=== PATIENT | female | born 1975 | race Two or more races ===

== ENCOUNTER 2017-11-25 12:41 | Inpatient (IN) | payer OTHER ==
--- NOTE | 2017-11-25 14:56 | PDOC ---
Attending Attestation - HPI HPI: 11/25/17 18:44 The patient is a 42 year old female with a significant PMH of 2 c-sections and tubal ligation who presents to the emergency department with abdominal pain, nausea, vomiting, and watery diarrhea that began approximately 4 days ago. The patient reports the abdominal pain and non-bloody, non-bilious vomit started first. The patient states the abdominal pain is localized on the umbilical and RUQ areas that she describes as a 10/10 worsened by eating. The patient notes she took peptobismol with mild alleviation of her symptoms. The abdominal pain and vomiting was then followed by watery diarrhea that she describes as dark black color. The patient denies any flank pain. The patient states she has not eaten since yesterday due to a lack of appetite, The patient denies chest pain, shortness of breath, headache and dizziness. Denies fever, chills, and constipation. Denies dysuria, frequency, urgency and hematuria. Allergies: NKA Past surgical history: , tubal ligation Social history: No reported alcohol, cigarette or drug use. PCP: Dr. Musa Lincoln - Physicial Exam PE: 11/25/17 18:44 GENERAL: Awake, alert, and fully oriented, in no acute distress HEAD: No signs of trauma EYES: PERRLA, EOMI, sclera anicteric, conjunctiva clear ENT: Auricles normal inspection, hearing grossly normal, nares patent, oropharynx clear without exudates. Moist mucosa NECK: Normal ROM, supple, no lymphadenopathy, JVD, or masses LUNGS: Breath sounds equal, clear to auscultation bilaterally. No wheezes, and no crackles HEART: Regular rate and rhythm, normal S1 and S2, no murmurs, rubs or gallops ABDOMEN: (+) Periumbilical tenderness to palpation. (+) RUQ tenderness to palpation. (+) Positive Bradford's Sign. Soft, normoactive bowel sounds. No guarding, no rebound. EXTREMITIES: Normal range of motion, no edema. No clubbing or cyanosis. No cords, erythema, or tenderness BACK: No midline spinal tenderness in cervical/thoracic/lumbar region NEUROLOGICAL: Normal speech, cranial nerves intact, negative pronator drift, 5/ 5 strength in all 4 extremities, normal sensation to light touch in all 4 extremities, normal cerebellar exam, normal gait, normal reflexes and tone SKIN: Warm, Dry, normal turgor, no rashes or lesions noted <Rowena Yoon - Last Filed: 11/25/17 18:44> - Resident Resident Name: Selena West - ED Attending Attestation I have performed the following: I have examined & evaluated the patient, The case was reviewed & discussed with the resident, I agree w/resident's findings & plan, Exceptions are as noted - Medical Decision Making 11/25/17 18:43 42-year-old female presents with epigastric abdominal pain, worse after food. Ultrasound with gallbladder wall thickening and gallstones. Patient continues to be tender in right upper quadrant. Story is consistent with clinical cholecystitis. Patient admitted for surgical consultation and further management. <Makenna Hopkins - Last Filed: 11/27/17 02:16>
--- NOTE | 2017-11-25 15:04 | PDOC ---
History of Present Illness - General Chief Complaint: Pain Stated Complaint: ABD PAIN, VOMITING History Source: Patient Exam Limitations: No Limitations - History of Present Illness Initial Comments: This is a 42 YOF with h/o CSx2 and BTL who p/w non-radiating umbilical abdominal pain worsening for the past four days, as well as NBNB vomiting and dark brown watery diarrhea. The pain has been up to 10/10, feels sharp and " like I'm being torn apart inside", and is intermittent. It worsens when she eats any food. She denies any fever, chills, constipation, dysuria, vaginal discharge, or other symptoms. She denies any alcohol use. Past History - Past Medical History Allergies/Adverse Reactions: Allergies Allergy/AdvReac Type Severity Reaction Status Date / Time No Known Allergies Allergy Verified 11/25/17 12:56 Home Medications: Ambulatory Orders NK [No Known Home Medication] 11/25/17 COPD: No - Suicide/Smoking/Psychosocial Hx Smoking History: Never smoked Have you smoked in the past 12 months: No Information on smoking cessation initiated: No Hx Alcohol Use: No Drug/Substance Use Hx: No Substance Use Type: None Review of Systems - Review of Systems Able to Perform ROS?: Yes Constitutional: Yes: Loss of Appetite. No: Chills, Fever, Malaise, Weakness, Unexplained wgt Loss HEENTM: No: Nose Congestion, Throat Pain Respiratory: No: Cough, Shortness of Breath Cardiac (ROS): No: Chest Pain, Palpitations ABD/GI: Yes: Diarrhea, Nausea, Vomiting, Other (abdominal pain). No: Constipated : No: Burning, Dysuria Musculoskeletal: No: Back Pain, Neck Pain Integumentary: No: Bruising, Rash Neurological: No: Headache, Numbness, Tingling, Weakness, Dizziness Endocrine: No: Unexplained Weight Gain, Unexplained Weight Loss, Change in Weight *Physical Exam - Vital Signs Last Vital Signs Temp Pulse Resp BP Pulse Ox 98.6 F 69 18 118/69 100 11/25/17 12:54 11/25/17 12:54 11/25/17 12:54 11/25/17 12:54 11/25/17 12:54 - Physical Exam General Appearance: Yes: Nourished, Appropriately Dressed, Obese, Other ( uncomfortable appearing adult female in mild distress, answering questions appropriately). No: Apparent Distress HEENT: positive: EOMI, HEMANT, Normal ENT Inspection, Normal Voice, Hearing Grossly Normal. negative: Scleral Icterus (R), Scleral Icterus (L), Nasal Congestion Neck: positive: Trachea midline, Supple. negative: Tender, Rigid Respiratory/Chest: positive: Lungs Clear, Normal Breath Sounds. negative: Respiratory Distress, Crackles, Rhonchi, Stridor, Wheezing Cardiovascular: positive: Regular Rhythm, Regular Rate. negative: Edema, JVD, Murmur Gastrointestinal/Abdominal: positive: Normal Bowel Sounds, Tender (moderate umbilical and mild RUQ ttp with positive Bradford's sign), Soft. negative: Organomegaly, Pulsatile Mass, Guarding Musculoskeletal: positive: Normal Inspection. negative: CVA Tenderness, Decreased Range of Motion, Vertebral Tenderness Extremity: positive: Normal Capillary Refill, Normal Inspection, Normal Range of Motion. negative: Tender, Cyanosis Integumentary: positive: Normal Color, Dry, Warm. negative: Erythema, Rash, Bruising Neurologic: positive: gleason operator II-XII NML intact (grossly), Fully Oriented, Alert, Normal Mood/Affect, Normal Response, Motor Strength 5/5 ED Treatment Course - LABORATORY CBC & Chemistry Diagram: 11/25/17 16:08 11/25/17 16:08 *DC/Admit/Observation/Transfer Diagnosis at time of Disposition: Cholelithiasis Qualifiers: Cholelithiasis location: gallbladder Cholecystitis presence: with cholecystitis Cholecystitis acuity: acute Biliary obstruction: without biliary obstruction Qualified Code(s): K80.00 - Calculus of gallbladder with acute cholecystitis without obstruction Abdominal pain Qualifiers: Abdominal location: right upper quadrant Qualified Code(s): R10.11 - Right upper quadrant pain Vomiting Qualifiers: Vomiting type: unspecified Vomiting Intractability: non-intractable Nausea presence: with nausea Qualified Code(s): R11.2 - Nausea with vomiting, unspecified Diarrhea Qualifiers: Diarrhea type: unspecified type Qualified Code(s): R19.7 - Diarrhea, unspecified - Discharge Dispostion Condition at time of disposition: Guarded Admit: Yes - Referrals Referrals: Musa Lincoln MD [Primary Care Provider] - - Patient Instructions - Post Discharge Activity
[2017-11-25] MEDS ORDERED: ACETAMINOPHEN 1000 MG/100 ML VIAL (NON FORMULARY) IVPB ONE (15:35)
[2017-11-25] MEDS ORDERED: SODIUM CHLORIDE 500 ML IV STA (15:35)
[2017-11-25] MEDS ORDERED: METOCLOPRAMIDE HCL INJECTION 10 MG/2 ML VIAL IVPUSH ONE (15:35)
[2017-11-25 16:13] LABS: URINE APPEARANCE CLEAR; URINE BILIRUBIN NEGATIVE (NEGATIVE); URINE BLOOD NEGATIVE (NEGATIVE); URINE COLOR STRAW; URINE GLUCOSE (UA) NEGATIVE (NEGATIVE); URINE KETONE NEGATIVE (NEGATIVE); URINE LEUK ESTERASE NEGATIVE (NEGATIVE); URINE NITRITE NEGATIVE (NEGATIVE); URINE PROTEIN NEGATIVE (NEGATIVE); URINE UROBILINOGEN NEGATIVE mg/dL (0.2-1.0)
[2017-11-25] MEDS ORDERED: ACETAMINOPHEN INJECTION 100 ML IVPB ONE (16:27)
[2017-11-25] MEDS ORDERED: METOCLOPRAMIDE HCL INJECTION 10 MG/2 ML VIAL ONE (16:27)
[2017-11-25 16:54] LABS: BASO % 0.5 % (0-2.0); EOS % 3.4 % (0-4.5); HEMATOCRIT 38.4 % (32.4-45.2); HEMOGLOBIN 12.9 GM/dL (10.7-15.3); LYMPH % 31.6 % (8-40); MCH 30.6 pg (25.7-33.7); MCHC 33.7 g/dl (32.0-36.0); MEAN CELL VOLUME 90.8 fl (80-96); MEAN PLT VOLUME 8.3 fl (7.5-11.1); MONO % 6.2 % (3.8-10.2); NEUT % 58.3 % (42.8-82.8); PLATELET COUNT 290 K/MM3 (134-434); RBC 4.23 M/mm3 (3.60-5.2); WHITE BLOOD COUNT 5.9 K/mm3 (4.0-10.0)
[2017-11-25 17:16] LABS: INR 1.08 (0.82-1.09); PROTHROMBIN TIME (PATIENT) 12.2 SEC (9.98-11.88)
[2017-11-25 17:20] LABS: ALBUMIN 3.7 g/dl (3.4-5.0); ANION GAP 5 (8-16); BLOOD UREA NITROGEN 7 mg/dL (7-18); CALCIUM 8.3 mg/dL (8.5-10.1); CHLORIDE 108 mmol/L (98-107); CO2 26 mmol/L (21-32); CREATININE 0.7 mg/dL (0.55-1.02); GLUCOSE,RANDOM 78 mg/dL (74-106); POTASSIUM 4.2 mmol/L (3.5-5.1); SGOT/AST 14 U/L (15-37); SODIUM 139 mmol/L (136-145)
[2017-11-25 18:03] LABS: ALK PHOS 81 U/L (45-117); BILIRUBIN,TOTAL 0.2 mg/dL (0.2-1.0); SGPT/ALT 16 U/L (12-78); TOT PROT 7.1 g/dl (6.4-8.2)
[2017-11-26 01:06] VITALS: BMI 37.7
[2017-11-26] MEDS ORDERED: MORPHINE SULFATE 10 MG/1 ML *VIAL IVPUSH PRN (06:09)
[2017-11-26] MEDS ORDERED: ONDANSETRON 4 MG/2 ML VIAL IVPUSH PRN (06:10)
[2017-11-26] MEDS ORDERED: DEXTROSE 5%-0.45% SALINE 1,000 ML IV SCH (06:15)
--- NOTE | 2017-11-26 11:39 | CONSULT ---
Consult Consult Specialty:: Surgery Reason for Consultation:: cholelithiasis - History of Present Illness Chief Complaint: RUQ abdominal pain History of Present Illness: The patient is a 42 year old female with a significant PMH of 2 c-sections and tubal ligation who presents to the emergency department with abdominal pain, nausea, vomiting, and watery diarrhea that began approximately 4 days ago. The patient reports the abdominal pain and non-bloody, non-bilious vomit started first. The patient states the abdominal pain is localized on the umbilical and RUQ areas that she describes as a 10/10 worsened by eating. The patient notes she took peptobismol with mild alleviation of her symptoms. The abdominal pain and vomiting was then followed by watery diarrhea that she describes as dark black color. The patient denies any flank pain. The patient states she has not eaten since yesterday due to a lack of appetite, The patient denies chest pain, shortness of breath, headache and dizziness. Denies fever, chills, and constipation. Denies dysuria, frequency, urgency and hematuria. Currently not in pain. Had clear liquids last night. - History Source History Provided By: Patient Limitations to Obtaining History: No Limitations - Past Medical History ...LMP: 11/22/17 ...: No - Past Surgical History Additional Surgical History: excision, axillary cyst - Alcohol/Substance Use Hx Alcohol Use: No - Smoking History Smoking history: Never smoked Have you smoked in the past 12 months: No - Social History Usual Living Arrangement: With Child Home Medications - Allergies Allergies/Adverse Reactions: Allergies Allergy/AdvReac Type Severity Reaction Status Date / Time No Known Allergies Allergy Verified 11/25/17 12:56 - Home Medications Home Medications: Ambulatory Orders NK [No Known Home Medication] 11/25/17 Review of Systems - Review of Systems Constitutional: reports: No Symptoms Cardiovascular: reports: No Symptoms Respiratory: reports: No Symptoms Gastrointestinal: reports: Abdominal Pain (resolving RUQ pain) Physical Exam Vital Signs: Vital Signs Temperature 98.6 F 11/26/17 08:00 Pulse Rate 62 11/26/17 08:00 Respiratory Rate 18 11/26/17 08:00 Blood Pressure 130/81 11/26/17 08:00 O2 Sat by Pulse Oximetry (%) 100 11/26/17 00:48 Constitutional: Yes: Well Nourished, No Distress Eyes: Yes: Conjunctiva Clear HENT: Yes: Normocephalic Neck: Yes: Supple Cardiovascular: Yes: Regular Rate and Rhythm Respiratory: Yes: CTA Bilaterally Gastrointestinal: Yes: Soft, Abdomen, Obese, Tenderness (minimal to no RUQ tenderness) ...Rectal Exam: Yes: Deferred Extremities: Yes: WNL Edema: No Integumentary: Yes: WNL Neurological: Yes: Alert, Oriented Psychiatric: Yes: WNL Labs: CBC, BMP 11/25/17 16:08 11/25/17 16:08 Laboratory Results - last 24 hr 11/25/17 11/25/17 11/25/17 15:42 16:08 16:08 WBC 5.9 RBC 4.23 Hgb 12.9 Hct 38.4 MCV 90.8 MCH 30.6 MCHC 33.7 RDW 13.0 Plt Count 290 MPV 8.3 Neutrophils % 58.3 Lymphocytes % 31.6 Monocytes % 6.2 Eosinophils % 3.4 Basophils % 0.5 PT with INR 12.20 H INR 1.08 Sodium Potassium Chloride Carbon Dioxide Anion Gap BUN Creatinine Creat Clearance w eGFR Random Glucose Calcium Total Bilirubin AST ALT Alkaline Phosphatase Creatine Kinase Troponin I Total Protein Albumin Lipase Urine Color Straw Urine Appearance Clear Urine pH 5.0 Ur Specific [place] 1.008 Urine Protein Negative Urine Glucose (UA) Negative Urine Ketones Negative Urine Blood Negative Urine Nitrite Negative Urine Bilirubin Negative Urine Urobilinogen Negative Ur Leukocyte Esterase Negative Blood Type Antibody Screen 11/25/17 11/25/17 11/25/17 16:08 16:08 16:08 WBC RBC Hgb Hct MCV MCH MCHC RDW Plt Count MPV Neutrophils % Lymphocytes % Monocytes % Eosinophils % Basophils % PT with INR INR Sodium 139 Potassium 4.2 Chloride 108 H Carbon Dioxide 26 Anion Gap 5 L BUN 7 Creatinine 0.7 Creat Clearance w eGFR > 60 Random Glucose 78 Calcium 8.3 L Total Bilirubin 0.2 AST 14 L ALT 16 Alkaline Phosphatase 81 Creatine Kinase 39 Troponin I < 0.02 Total Protein 7.1 Albumin 3.7 Lipase 153 Urine Color Urine Appearance Urine pH Ur Specific [place] Urine Protein Urine Glucose (UA) Urine Ketones Urine Blood Urine Nitrite Urine Bilirubin Urine Urobilinogen Ur Leukocyte Esterase Blood Type O POSITIVE Antibody Screen Negative Imaging - Results Ultrasound: Report Reviewed, Image Reviewed (contracted GB with large stone, possibly impacted) Problem List - Problems (1) Cholelithiasis Assessment/Plan: cholellithiasis with mild cholecystitis from impacted large gallstone Advised cholecystectomy on this hospital stay but patient desires to go home as pain has significantly subsided Will resume diet -low fat and possible discharge if pain does not recur If patient's symptoms recur, will likely need cholecystectomy before discharge. Code(s): K80.20 - CALCULUS OF GALLBLADDER W/O CHOLECYSTITIS W/O OBSTRUCTION Qualifiers: Cholelithiasis location: gallbladder Cholecystitis presence: with cholecystitis Cholecystitis acuity: acute Biliary obstruction: without biliary obstruction Qualified Code(s): K80.00 - Calculus of gallbladder with acute cholecystitis without obstruction
--- NOTE | 2017-11-26 12:41 | HP ---
Admitting History and Physical - Past Medical History ...LMP: 11/22/17 ...: No - Smoking History Smoking history: Never smoked Have you smoked in the past 12 months: No - Alcohol/Substance Use Hx Alcohol Use: No Home Medications - Allergies Allergies/Adverse Reactions: Allergies Allergy/AdvReac Type Severity Reaction Status Date / Time No Known Allergies Allergy Verified 11/25/17 12:56 - Home Medications Home Medications: Ambulatory Orders NK [No Known Home Medication] 11/25/17 Physical Examination Vital Signs: Vital Signs Temperature 98.6 F 11/26/17 08:00 Pulse Rate 62 11/26/17 08:00 Respiratory Rate 18 11/26/17 08:00 Blood Pressure 130/81 11/26/17 08:00 O2 Sat by Pulse Oximetry (%) 100 11/26/17 00:48 Labs: CBC, BMP 11/25/17 16:08 11/25/17 16:08
[2017-11-26] MEDS ORDERED: IBUPROFEN 400 MG TABLET (FP) PO ONE (21:30)
[2017-11-27 05:13] VITALS: TEMP 97.9
[2017-11-27 07:49] VITALS: BP 99/65; PULSE 58
[2017-11-27 08:13] LABS: BASO % 0.9 % (0-2.0); EOS % 6.4 % (0-4.5); HEMATOCRIT 38.1 % (32.4-45.2); HEMOGLOBIN 12.6 GM/dL (10.7-15.3); LYMPH % 31.9 % (8-40); MCH 29.6 pg (25.7-33.7); MCHC 33.1 g/dl (32.0-36.0); MEAN CELL VOLUME 89.3 fl (80-96); MEAN PLT VOLUME 7.8 fl (7.5-11.1); MONO % 7.1 % (3.8-10.2); NEUT % 53.7 % (42.8-82.8); PLATELET COUNT 302 K/MM3 (134-434); RBC 4.27 M/mm3 (3.60-5.2); RDW 12.9 % (11.6-15.6); WHITE BLOOD COUNT 5.5 K/mm3 (4.0-10.0)
[2017-11-27 08:28] LABS: CHLORIDE 106 mmol/L (98-107); POTASSIUM 4.2 mmol/L (3.5-5.1); SODIUM 139 mmol/L (136-145)
[2017-11-27 08:34] LABS: ALBUMIN 3.5 g/dl (3.4-5.0); ALK PHOS 65 U/L (45-117); ANION GAP 6 (8-16); BILIRUBIN,TOTAL 0.4 mg/dL (0.2-1.0); BLOOD UREA NITROGEN 13 mg/dL (7-18); CALCIUM 8.1 mg/dL (8.5-10.1); CO2 27 mmol/L (21-32); CREATININE 0.7 mg/dL (0.55-1.02); GLUCOSE,RANDOM 91 mg/dL (74-106); SGOT/AST 11 U/L (15-37); SGPT/ALT 14 U/L (12-78); TOT PROT 6.6 g/dl (6.4-8.2)
--- NOTE | 2017-11-27 12:06 | DS ---
Physical Examination Vital Signs: Vital Signs Temperature 97.9 F 11/27/17 07:48 Pulse Rate 58 L 11/27/17 07:48 Respiratory Rate 18 11/27/17 07:48 Blood Pressure 99/65 11/27/17 07:48 O2 Sat by Pulse Oximetry (%) 98 11/27/17 10:00 Labs: CBC, BMP 11/27/17 07:00 11/27/17 07:00 Discharge Summary Reason For Visit: CHOLELITHIASIS/DIARRHEA/ABD PAIN/ VOMITING Current Active Problems Abdominal pain (Acute) Cholelithiasis (Acute) Diarrhea (Acute) Vomiting (Acute) Condition: Good - Instructions Diet, Activity, Other Instructions: Low fat diet See Dr Lincoln in [address] Neel Weems in 1 week Referrals: Musa Lincoln MD [Primary Care Provider] - Disposition: HOME - Home Medications Comprehensive Discharge Medication List: Ambulatory Orders NK [No Known Home Medication] 11/25/17
== END 2017-11-27 13:02 | disposition home or self-care (01) ==
LOC: JER 12:41 → JERBED 19:12 → J6S 11-26 00:30 → OBSVTOIN 11-26 06:07
PROVIDERS: ADMIT Internal Medicine; ATTEND Internal Medicine
DX: K80.20 Calculus of gallbladder without cholecystitis without obstruction (principal); R19.7 Diarrhea, unspecified; R11.10 Vomiting, unspecified; E66.9 Obesity, unspecified; Z68.37 Body mass index [BMI] 37.0-37.9, adult; R10.11 Right upper quadrant pain
CPT/HCPCS: 36415; 76705-TC; 80053; 81003; 82550; 83690; 84484; 85025; 85610; 86850; 86900; 86901; 87086; 99285-25; G0378

== ENCOUNTER 2018-03-09 09:37 | Emergency (ER) | payer OTHER ==
[2018-03-09 10:07] VITALS: BP 155/96; PULSE 73; TEMP 98.7; BMI 36.1
--- NOTE | 2018-03-09 10:48 | PDOC ---
History of Present Illness - General Chief Complaint: Cold Symptoms Stated Complaint: COUGH, FEVER Time Seen by Provider: 03/09/18 10:48 History Source: Patient Exam Limitations: No Limitations - History of Present Illness Initial Comments: 03/09/18 11:02 Chief complaint: Cough and fever Patient is a healthy 42-year-old female with no significant medical problems who is complaining of cold, cough, fever for 3-4 days. Patient complaining of sore throat. Patient took Tylenol at 7:30 this morning. GENERAL/CONSTITUTIONAL: No fever, weakness. dizziness HEAD, EYES, EARS, NOSE AND THROAT: No change in vision. No ear pain or discharge. +sore throat. CARDIOVASCULAR: No chest pain RESPIRATORY: No shortness of breath, +cough GASTROINTESTINAL: No pain, nausea, vomiting, diarrhea or constipation GENITOURINARY: No dysuria MUSCULOSKELETAL: No neck or back pain SKIN: No rash NEUROLOGIC: No headache, vertigo, loss of consciousness, or loss of sensation. GENERAL: The patient is awake, alert, and fully oriented, in no acute distress. HEAD: Normal with no signs of trauma. EYES: Pupils equal, round and reactive to light, sclera anicteric, conjunctiva clear. ENT: pharynx: no erythema, no exudate, uvula midline NECK: supple CHEST: clear, some wheezy coughing with deep inspiration nontender, rr ABD: soft, nontender EXTREMITIES: Normal range of motion, no edema. NEUROLOGICAL: Normal speech, normal gait. SKIN: Warm, Dry Past History - Past Medical History Allergies/Adverse Reactions: Allergies Allergy/AdvReac Type Severity Reaction Status Date / Time No Known Allergies Allergy Verified 03/09/18 10:03 Home Medications: Ambulatory Orders Albuterol Sulfate Inhaler - [Ventolin HFA Inhaler -] 2 inh PO Q4H #1 inh Azithromycin [Zithromax -] 250 mg PO UTDICT #6 tab 03/09/18 COPD: No - Surgical History Cholecystectomy: Yes - Reproductive History Tubal Ligation: Yes - Suicide/Smoking/Psychosocial Hx Smoking History: Never smoked Have you smoked in the past 12 months: No Information on smoking cessation initiated: No Hx Alcohol Use: Yes (socially) Drug/Substance Use Hx: No Substance Use Type: None *Physical Exam - Vital Signs Last Vital Signs Temp Pulse Resp BP Pulse Ox 98.7 F 73 20 155/96 99 03/09/18 10:03 03/09/18 10:03 03/09/18 10:03 03/09/18 10:03 03/09/18 10:03 Medical Decision Making - Medical Decision Making 03/09/18 11:03 Patient with upper respiratory symptoms since Tuesday, complaining of fever, took Tylenol this morning. Patient complaining of sore throat and cough. Patient clear on auscultation but with some slightly wheezy cough with deep inspiration. No respiratory distress. No signs of pneumonia. Patient will get Motrin, DuoNeb and strep test and reassessment. Patient does not smoke. 03/09/18 11:28 Patient feels better after treatment, given the patient had fever this morning, will give antibiotics and inhaler 03/09/18 12:39 Discussed issues, findings, results, applicable medications and treatments and follow-up. All these were understood and all questions were answered *DC/Admit/Observation/Transfer Diagnosis at time of Disposition: Acute wheezy bronchitis - Discharge Dispostion Disposition: HOME Condition at time of disposition: Stable Decision to Admit order: No - Prescriptions Prescriptions: Albuterol Sulfate Inhaler - [Ventolin HFA Inhaler -] 2 inh PO Q4H #1 inh Azithromycin [Zithromax -] 250 mg PO UTDICT #6 tab - Referrals Referrals: Musa Lincoln MD [Primary Care Provider] - - Patient Instructions Printed Discharge Instructions: DI for Reactive Airway Disease-Adult Additional Instructions: Drink 2-3 L of water daily Take Tylenol 650 mg every 4 hours or Motrin 600 mg every 6 hours for fever and pain take zpack as directed. use albuterol 2 puffs every 4 hours Return to the nearest ER if short of breath, unable to swallow or feeling sicker Followup with your doctor in one to 2 days - Post Discharge Activity Forms/Work/School Notes: Back to Work
[2018-03-09] MEDS ORDERED: ALBUTEROL SO4 2.5/IPRATROPIUM 0.5 INH SOL 3 ML VIAL.NEB. NEB ONE ×2 (10:53→10:59)
[2018-03-09] MEDS ORDERED: IBUPROFEN 600 MG TABLET (FP) PO ONE ×2 (10:53→10:59)
== END 2018-03-09 11:45 | disposition home or self-care (01) ==
LOC: JERFT 09:37
PROC: 3E0F7GC Introduction of Other Therapeutic Substance into Respiratory Tract, Via Natural or Artificial Opening (ICD-10-PCS; principal; 2018-03-09)
DX: J20.9 Acute bronchitis, unspecified (principal)
CPT/HCPCS: 87070; 87430; 99281-25; J7620

== ENCOUNTER 2018-06-25 15:01 | Emergency (ER) | payer OTHER ==
[2018-06-25 15:13] VITALS: BP 123/74; PULSE 91; TEMP 98.7; BMI 35.9
[2018-06-25] MEDS ORDERED: IBUPROFEN 100 MG/5 ML UNIT DOSE CUPS PO ONE (15:42)
[2018-06-25] MEDS ORDERED: PENICILLIN G BENZATHINE 1,200,000 UNIT/2 ML PFS IM ONE (15:42)
--- NOTE | 2018-06-25 15:42 | PDOC ---
History of Present Illness - General Chief Complaint: Sore Throat Stated Complaint: TROUBLE SWALLOWING Time Seen by Provider: 06/25/18 15:33 History Source: Patient Exam Limitations: No Limitations - History of Present Illness Initial Comments: 06/25/18 15:47 Patient came for evaluation of acute onset of sore throat pain. States didn't feel well yesterday morning but by the time she went to bed she had some pain in her throat and felt feverish. Woke up this morning with exquisite sore throat pain, difficulty swallowing, and general malaise. States felt feverish but has not taken temperature. Works as a dental hygienist. No one else at home is sick Timing/Duration: unsure, 24 hours Severity: moderate Associated Symptoms: reports: cough, fever/chills, headaches Past History - Travel Traveled outside of the country in the last 30 days: No Close contact w/someone who was outside of country & ill: No - Past Medical History Allergies/Adverse Reactions: Allergies Allergy/AdvReac Type Severity Reaction Status Date / Time No Known Allergies Allergy Verified 06/25/18 15:12 Home Medications: Ambulatory Orders Amlodipine Besylate 5 mg PO DAILY 06/25/18 COPD: No HTN: Yes - Surgical History Cholecystectomy: Yes - Reproductive History Tubal Ligation: Yes - Suicide/Smoking/Psychosocial Hx Smoking History: Never smoked Have you smoked in the past 12 months: No Hx Alcohol Use: Yes (socially) Drug/Substance Use Hx: No Substance Use Type: None Review of Systems - Review of Systems Able to Perform ROS?: Yes Is the patient limited Czech proficient: Yes Constitutional: Yes: Symptoms Reported, See HPI HEENTM: Yes: Symptoms Reported, See HPI, Nose Congestion, Throat Pain, Throat Swelling, Difficulty Swallowing Respiratory: Yes: See HPI. No: Symptoms reported, Cough ABD/GI: No: Symptoms Reported Musculoskeletal: Yes: Symptoms Reported Integumentary: Yes: See HPI. No: Symptoms Reported, Rash Neurological: Yes: Symptoms reported, See HPI, Headache All Other Systems: Reviewed and Negative *Physical Exam - Vital Signs Last Vital Signs Temp Pulse Resp BP Pulse Ox 98.7 F 91 H 18 123/74 100 06/25/18 15:10 06/25/18 15:10 06/25/18 15:10 06/25/18 15:10 06/25/18 15:10 - Physical Exam General Appearance: Yes: Nourished, Appropriately Dressed, Apparent Distress, Mild Distress, Moderate Distress HEENT: positive: TMs Normal, Pharyngeal Erythema, Tonsillar Exudate (thick green /paredes. beefy red tonsils ), Tonsillar Erythema, Nasal Congestion, Rhinorrhea. negative: Pharynx Normal Neck: positive: Tender, Supple, Lymphadenopathy (R), Lymphadenopathy (L) Respiratory/Chest: positive: Lungs Clear, Normal Breath Sounds Cardiovascular: positive: Regular Rate Gastrointestinal/Abdominal: positive: Normal Bowel Sounds, Soft. negative: Tender Musculoskeletal: positive: Normal Inspection Extremity: positive: Normal Capillary Refill Integumentary: positive: Normal Color, Dry, Warm, Pale Neurologic: positive: geek squad agent II-XII NML intact, Fully Oriented, Alert, Normal Mood/ Affect, Normal Response, Motor Strength 02/25 Medical Decision Making - Medical Decision Making 06/25/18 15:48 Pharyngitis, probable strep. Treated with 1.2 million units of IM Bicillin without reaction after 30 minutes observation and ibuprofen for fever and pain relief. *DC/Admit/Observation/Transfer Diagnosis at time of Disposition: Pharyngitis Qualifiers: Pharyngitis/tonsillitis etiology: unspecified etiology Qualified Code(s): J02.9 - Acute pharyngitis, unspecified - Discharge Dispostion Disposition: HOME Condition at time of disposition: Stable Decision to Admit order: No - Referrals Referrals: Musa Lincoln MD [Primary Care Provider] - - Patient Instructions Printed Discharge Instructions: DI for Pharyngitis/Tonsillopharyngitis -- Adult Additional Instructions: Rest, drink lots of fluids: Teas, water, soups Eat cold things: Ice cream, ice pops, ice chips Saltwater gargles Steamy showers/seem to face break up mucus Avoid contact with others until fevers and pain resolved Lots of handwashing and good hygiene, this is contagious You have been treated with Bicillin LA 1.2 million units injection which is a one-time treatment for strep pharyngitis. You will not need to take any further antibiotics. Tylenol or Motrin for fever and pain Followup with private physician in one to 2 days as needed if not improving Return to emergency department for worsened symptoms, fevers, dehydration - Post Discharge Activity Forms/Work/School Notes: Back to Work
[2018-06-25] MEDS ORDERED: IBUPROFEN 100 MG/5 ML UNIT DOSE CUPS ONE (15:47)
[2018-06-25] MEDS ORDERED: PENICILLIN G BENZATHINE 2,400,000 UNIT/4 ML PFS ONE (15:48)
== END 2018-06-25 16:33 | disposition home or self-care (01) ==
LOC: JERFT 15:01
DX: J02.9 Acute pharyngitis, unspecified (principal); I10 Essential (primary) hypertension
CPT/HCPCS: 96372; 99281-25

== ENCOUNTER 2020-12-16 08:09 | Emergency (ER) | payer OTHER ==
[2020-12-16 08:13] VITALS: BP 159/90; PULSE 77; TEMP 97.8; BMI 29.9
== END 2020-12-16 09:26 | disposition home or self-care (01) ==
LOC: JERFT 08:09
DX: S63.501A Unspecified sprain of right wrist, initial encounter (principal); W01.0XXA Fall on same level from slipping, tripping and stumbling without subsequent striking against object, initial encounter
CPT/HCPCS: 73110-TC-RT-FY; 73130-TC-RT-FY; 99283-25

== ENCOUNTER 2023-01-25 23:34 | Emergency (ER) | payer OTHER ==
[2023-01-25 23:41] VITALS: BP 122/83; PULSE 110; RESP 17; TEMP 98.1; BMI 35.2
[2023-01-26] MEDS ORDERED: LIDOCAINE 1%/EPI 1:100000 (50 ML MULTI DOSE VIAL) INF ONE (01:02)
[2023-01-26] MEDS ORDERED: DIPHTH,PERTUSS(ACELL),TET 0.5 ML DISP.SYRIN IM ONE ×2 (01:02→01:15)
== END 2023-01-26 02:46 | disposition home or self-care (01) ==
LOC: JER 23:34
PROC: 0HQ1XZZ Repair Face Skin, External Approach (ICD-10-PCS; principal; 2023-01-26)
PROC: 3E0234Z Introduction of Serum, Toxoid and Vaccine into Muscle, Percutaneous Approach (ICD-10-PCS; 2023-01-26)
DX: S01.81XA Laceration without foreign body of other part of head, initial encounter (principal); S01.112A Laceration without foreign body of left eyelid and periocular area, initial encounter; W01.190A Fall on same level from slipping, tripping and stumbling with subsequent striking against furniture, initial encounter; Y92.008 Other place in unspecified non-institutional (private) residence as the place of occurrence of the external cause
CPT/HCPCS: 12013; 70450-TC; 70486-TC; 72125-TC; 90471; 90715; 99283-25